=== PATIENT | female | born 1960 | race Caucasian/White ===

== ENCOUNTER 2019-03-30 12:30 | Outpatient (CLI) | payer SELFPAY | END 2019-03-30 12:31 | disposition home or self-care (01) | LOC: LAB 12:30 | DX: Z01.89 Encounter for other specified special examinations (principal) ==

== ENCOUNTER 2019-07-31 19:27 | Emergency (ER) | payer BC ==
[2019-07-31 19:40] VITALS: BP 130/97
--- NOTE | 2019-07-31 20:28 | ED Physician Documentation ---
PD HPI LOWER EXT INJURY - Stated complaint Stated Complaint: LT LEG SWELLING/PAIN - Chief complaint Chief Complaint: Ext Problem - History obtained from History obtained from: Patient (6 days ago developed atraumatic pain and swelling in the left popliteal area. It is mostly better now but was referred in by her doctor to rule out DVT. She has no recent travel. No history of DVT or PE.) Review of Systems Constitutional: denies: Fever, Chills Cardiac: denies: Chest pain / pressure, Palpitations Respiratory: denies: Dyspnea, Cough PD PAST MEDICAL HISTORY - Present Medications Home Medications: Ambulatory Orders Medication Instructions Recorded Confirmed Albuterol Sulfate [Albuterol 2 puffs IH Q4HR PRN 07/31/19 07/31/19 Sulfate Hfa] SUMAtriptan succinate [Sumatriptan 100 mg PO DAILY PRN 07/31/19 07/31/19 Succinate] - Allergies Allergies/Adverse Reactions: Allergies Allergy/AdvReac Type Severity Reaction Status Date / Time erythromycin base AdvReac Cramps Verified 07/31/19 19:36 PD ED PE NORMAL - Vitals Vital signs reviewed: Yes - General General: Alert and oriented X 3, No acute distress - Extremities Extremities: Other (No obvious swelling or tenderness of the right leg or popliteal area. No cellulitic changes. Normal pedal pulses.) - Neuro Neuro: Alert and oriented X 3, Normal speech Results - Vitals Vitals: Vital Signs - 24 hr 07/31/19 19:30 Temperature 36.5 C Heart Rate 82 Respiratory 16 Rate Blood Pressure 130/97 H O2 Saturation 97 Oxygen O2 Source Room air - Rads (name of study) LLE duplex Radiology: Final report received (no dvt) Departure - Departure Disposition: 01 Home, Self Care Clinical Impression: Pain in extremity Qualifiers: Extremity pain location: lower extremity Laterality: left Qualified Code(s): M79.605 - Pain in left leg Condition: Good Record reviewed to determine appropriate education?: Yes Instructions: ED Leg Swelling Unilateral Comments: There is no evidence of blood clot in the left leg, follow-up with your doctor for further evaluation and treatment and return for new or worsening symptoms. Discharge Date/Time: 07/31/19 21:10
--- NOTE | 2019-07-31 21:06 | Ultrasound Report ---
Reason: leg pain Procedure Date: 07/31/2019 Accession Number: [id number] / [id number] Procedure: US - Duplex Ext Veins Left CPT Code: Final Report FULL RESULT: EXAM: LEFT LOWER EXTREMITY VENOUS ULTRASOUND EXAM DATE: 07/31/2019 08:47 PM. CLINICAL HISTORY: Leg pain. COMPARISON: None. TECHNIQUE: Real-time sonographic vascular imaging was performed by the hogshead press operator through the lower extremity utilizing both color-flow and Doppler spectral analysis. Multiple nutrition representative static images were saved for review. FINDINGS: Common Femoral Vein (CFV): Normal. CFV-GSV Junction: Normal. Profunda Femoral Vein (PFV): Normal. Femoral Vein (FV) Prox: Normal. Femoral Vein (FV) Mid: Normal. Femoral Vein (FV) Dist: Normal. Popliteal Vein: Normal. Posterior Tibial Veins: Normal. Peroneal Veins: Normal. Contralateral Side CFV: Normal. Other: None. IMPRESSION: No evidence for deep venous thrombosis in the visualized left lower leg. [facility]
== END 2019-07-31 21:10 | disposition home or self-care (01) ==
LOC: ED 19:27
DX: M79.605 Pain in left leg (principal)
CPT/HCPCS: 99283; 99284